=== PATIENT | male | born 1980 | race Caucasian/White ===

== ENCOUNTER 2024-03-06 18:35 | Emergency (ER) | payer OTHER, SELFPAY ==
[2024-03-06 18:40] VITALS: BP 130/100; PULSE 109; O2SAT 100; BMI 26.5
[2024-03-06 19:53] LABS: Influenza Virus A Antigen Negative; Influenza Virus B Antigen Negative; Internal Control Within Normal Limits; Strep A Antigen Screen Negative
[2024-03-06] MEDS: DEXAMETHASONE SOD PHOS 10 MG/ML VIAL PO (19:53)
[2024-03-06] MEDS: MECLIZINE HCL 12.5 MG TABLET 25 MG PO (19:53)
[2024-03-06 19:54] LABS: Internal Control Within Normal Limits
[2024-03-06] MEDS: KETOROLAC TROMETHAMINE 60 MG/2 ML VIAL IM (19:54)
[2024-03-06 19:55] LABS: SARS-CoV-2 Ag POSITIVE (NEGATIVE)
--- NOTE | 2024-03-06 20:02 | ED.DIZZY1 ---
HPI - Dizziness General Chief Complaint: Dizziness Stated Complaint: FLU LIKE SYMPTOMS Time Seen by Provider: 03/06/24 19:21 Source: patient Mode of arrival: walk-in Limitations: no limitations History of Present Illness HPI Narrative: 43-year-old male presents here with a chief complaint of dizziness. Patient states he had an upper respiratory infection with headache cough congestion sore throat last week and then symptoms progressed to nasal congestion and head pain. Vital signs are stable he is afebrile. He states he is here today because he has had some increased dizziness. Denies any ringing in the ears. Patient is otherwise healthy. He does admit to vaping. Related Data Previous Rx's ?Medication ?Instructions ?Recorded fluticasone propionate 50 2 spray intranasal DAILY PRN nasal 03/06/24 mcg/actuation nasal congestion #16 grams spray,suspension (Flonase Allergy Relief) Allergies Allergy/AdvReac Type Severity Reaction Status Date / Time Penicillins Allergy Severe Rash Verified 03/06/24 18:44 Review of Systems ROS Narrative All Systems are negative except as noted/marked.All systems reviewed and otherwise negative Exam Narrative Exam Narrative: Nurses note and vital signs reviewed and patient is not hypoxic. General: The patient appears well and in no apparent distress. Patient is resting comfortably on cart. Skin: Warm, dry, no pallor noted. There is no rash noted. Head: Normocephalic, atraumatic Eye: Normal conjunctiva, no drainage, EOMI. PERRL, no nystagmus Ears, Nose, Mouth, and Throat: oral mucosa is moist. Nares patent. Mouth without vesicles. Ear canals patent. Tm's without Erythema Cardiovascular: Regular Rate and Rhythm Respiratory: Patient is in no distress, no accessory muscle use, lungs are clear to auscultation, no wheezing, rales or rhonchi Back: non-tender, no CVA tenderness bilaterally to percussion. GI: Normal bowel sounds, no tenderness to palpation, no masses appreciated. No rebound, guarding, or rigidity noted. Musculoskeletal: The patient has no evidence of calf tenderness, no pitting edema, symmetrical pulses noted bilaterally Neurological: A&O x4, normal speech Psychiatric: Cooperative Constitutional Vital Signs, click to edit/add: Last Vital Signs Pulse 109 H 03/06/24 18:40 Resp 20 03/06/24 18:40 BP 130/100 H 03/06/24 18:40 Pulse Ox 100 03/06/24 18:40 O2 Del Method Room Air 03/06/24 18:40 Course Vital Signs Vital signs: Vital Signs Pulse Rate 109 H 03/06/24 18:40 Respiratory Rate 20 03/06/24 18:40 Blood Pressure 130/100 H 03/06/24 18:40 Pulse Oximetry 100 03/06/24 18:40 Oxygen Delivery Method Room Air 03/06/24 18:40 Pulse Rate 109 H 03/06/24 18:40 Respiratory Rate 20 03/06/24 18:40 Blood Pressure 130/100 H 03/06/24 18:40 Pulse Oximetry 100 03/06/24 18:40 Oxygen Delivery Method Room Air 03/06/24 18:40 MDM - Dizziness MDM Narrative Medical decision making narrative: 43-year-old male presents here with a chief complaint of dizziness. Patient states he had an upper respiratory infection with headache cough congestion sore throat last week and then symptoms progressed to nasal congestion and head pain. Vital signs are stable he is afebrile. He states he is here today because he has had some increased dizziness. Denies any ringing in the ears. Patient is otherwise healthy. He does admit to vaping. Here chief complaint of dizziness. He has no nystagmus. No neurological deficits. Patient was medicated here with Decadron Toradol and Antivert. He will be discharged home prescription Antivert and Flonase. I believe his symptoms are due to the infection of COVID. Patient struck to follow-up primary care physician. No questions at discharge. Differential Diagnosis Differential diagnosis: Likely other (uri, covid, otitis) Medical Records Attestation: I reviewed the patient's medical records. Lab Data Attestation: I reviewed the patient's lab results. Labs: Lab Results 03/06/24 Range/Units 19:30 Influenza Type A Ag Negative Influenza Type B Ag Negative SARS-CoV-2 Ag (CV2AG) Positive A (NEGATIVE) Streptococcus Screen Negative Discharge Plan Discharge Stand Alone Forms: Portal Instructions Chief Complaint: Dizziness Clinical Impression: COVID, Dizziness Patient Disposition: Home, Self-Care Time of Disposition Decision: 20:00 Condition: Good Prescriptions / Home Meds: New fluticasone propionate [Flonase Allergy Relief] 50 mcg/actuation spray,suspension 2 spray intranasal DAILY PRN (Reason: nasal congestion) Qty: 16 0RF Rx Instructions: administer into each nostril Print Language: Nepali Instructions: Dizziness (ED), Droplet Precautions (ED), Social Distancing Guidelines for COVID-19 (ED) Referrals: MISTI CALLES [Primary Care Provider] - 1 week
[2024-03-06 20:06] VITALS: BP 130/98
== END 2024-03-06 20:17 | disposition home or self-care (01) ==
PROVIDERS: Physician Assistant; Emergency Provider Emergency Medicine; PCP Family Medicine
DX: U07.1 COVID-19 (principal); R42 Dizziness and giddiness
CPT/HCPCS: 87070; 87804; 87811; 87880; 96372; 99285; J1100; J1885